=== PATIENT | male | born 1940 | race Two or more races ===

== ENCOUNTER 2021-04-20 06:37 | Day surgery (SDC) | payer MEDICARE, OTHER ==
[~2021-04-20] VITALS: Ht 175.3 cm; Wt 83.9 kg
[2021-04-20] MEDS ORDERED: LIDOCAINE 2%HCL (LOCAL ANESTH.) INJ 20ML MDV ONE (07:14)
[2021-04-20] MEDS ORDERED: IODIXANOL 320MG/ML 100ML BTL IV ONE (07:14)
[2021-04-20] MEDS ORDERED: HEPARIN SODIUM (PORCINE) 5000 UNITS/ML 1ML VIAL ONE (07:45)
[2021-04-20] MEDS ORDERED: ANGIOMAX 250 MG VIAL IV ONE (07:45)
[2021-04-20] MEDS ORDERED: MIDAZOLAM HCL 2MG/2ML 2ml VIAL (1mg/ml) ONE (07:46)
[2021-04-20] MEDS ORDERED: VERAPAMIL 2.5MG/ML INJ 2ML VIAL IV ONE (07:46)
[2021-04-20] MEDS ORDERED: SODIUM CHL 0.9% 50 ML ONE (07:46)
[2021-04-20] MEDS ORDERED: fentaNYL CITRATE 100 MCG/2 ML VL ONE (07:46)
[2021-04-20] MEDS ORDERED: ACETAMINOPHEN 500 MG TAB PO PRN (08:41)
[2021-04-20] MEDS ORDERED: HYDROcodone-ACET 5/325MG TAB PO PRN (08:41)
[2021-04-20] MEDS ORDERED: ONDANSETRON HCL 4 MG/2 ML VIAL IV PRN (08:41)
== END 2021-04-20 10:46 | disposition home or self-care (01) ==
LOC: CATH 06:37
PROVIDERS: ATTEND Internal Medicine Cardiovascular Disease
DX: R94.39 Abnormal result of other cardiovascular function study (principal); I25.10 Atherosclerotic heart disease of native coronary artery without angina pectoris; I10 Essential (primary) hypertension; E11.9 Type 2 diabetes mellitus without complications; E78.5 Hyperlipidemia, unspecified; Z20.822 Contact with and (suspected) exposure to COVID-19
CPT/HCPCS: 93458; 93571; C1769; C1887; C1894; J1644; J2250; J3010; J7030; Q9967; U0003; 99152